=== PATIENT | male | born 1935 | race Caucasian/White ===

== ENCOUNTER → 2016-09-05 | Day surgery (SDC) | payer MEDICARE, OTHER ==
[~2016-09-05] VITALS: Ht 185.4 cm; Wt 88.5 kg
[~2016-09-05] MED LIST: ACETAMINOPHEN/HYDROcodone 325 MG/5 MG TAB ONE; ALLO300T2 PO; AMIO200T PO; ASPI-110 PO; BUPIVACAINE LIPOSOME PF 1.3% 20 ML VIAL ONE; BUPIVACAINE/EPINEPHRINE 0.25% PF 30 ML VIAL ONE; INSULIN HUMAN REGULAR 1,000 UNITS/10 ML VIAL SQ PRN; LACTATED RINGER'S 1000 ML INJ 1,000 ML IV ONE; LACTATED RINGER'S 1000 ML IV SCH; METOPROLOL TARTRATE 25 MG TAB PO PRN; MIDAZOLAM HCL 2 MG/2 ML VIAL ONE; NEOSTIGMINE 3 MG/3 ML SYR IV ONE; ONDANSETRON HCL 4 MG/2 ML VIAL IV PUSH ONE; PROPOFOL 200 MG/20 ML AMP IV ONE; ROSU20 PO; SODIUM CHLORID 0.9% 500 ML IV SCH; WARF4TAB52 PO; ceFAZolin 2 GM PREMIX 50 ML IV SCH; fentaNYL CITRATE 250 MCG/5 ML AMP ONE
[2016-09-05 12:14] VITALS: BP 177/72; PULSE 50; RESP 16; TEMP 98.1; O2SAT 97
[2016-09-05 12:36] LABS: AUTOMATED NEUTROPHIL # 3.6 TH/MM3 (1.8-7.7); BASOPHIL % 0.6 % (0.0-2.0); EOSINOPHIL # 0.1 TH/MM3 (0-0.4); EOSINOPHIL % 2.3 % (0.0-4.0); HEMATOCRIT 42.5 % (39.0-51.0); HEMO FLAGS DIFF FINAL; LYMPH % 24.5 % (9.0-44.0); LYMPHOCYTE # 1.4 TH/MM3 (1.0-4.8); MEAN CELL VOLUME 100.3 FL (80.0-100.0); MEAN CORPUSCULAR HEMOGLOBIN 34.1 PG (27.0-34.0); MONO % 9.8 % (0.0-8.0); NEUT % 62.8 % (16.0-70.0); PLATELET COUNT 110 TH/MM3 (150-450); RED BLOOD COUNT 4.24 MIL/MM3 (4.50-5.90); RED CELL DISTRIBUTION WIDTH 15.7 % (11.6-17.2); WHITE BLOOD COUNT 5.7 TH/MM3 (4.0-11.0)
[2016-09-05 12:41] LABS: INTERNATIONAL NORMALIZED RATIO 1.3 RATIO
--- NOTE | 2016-09-05 13:08 | EKG ---
Date Performed: 09/05/2016 Time Performed: 12:22:47 PTAGE: 81 years EKG: BASELINE ARTIFACT PRESENT. SINUS BRADYCARDIA WITH FIRST DEGREE AV BLOCK ABNORMAL ECG COMPAR ED TO PRIOR ELECTROCARDIOGRAM, Rate has slowed. PREVIOUS TRACING : 08/15/2012 11.24 DOCTOR: Samson Davidson Interpretating Date/Time 09/05/2016 13:07:35
--- NOTE | 2016-09-05 15:38 | PD.OP ---
Operative Report Date of Surgery: Sep 05, 2016 Preoperative Diagnosis: Ventral incisional hernias Postoperative Diagnosis: same Procedure: Lap repair ventral incisional hernias with Goretex dual mesh 16 x 22 x 1 Anesthesia: general Surgeon: Fab Thompson [employer](s): Kezia from [facility] Operation and Findings: multiple VIHs in midline. Covered by 16 x 22 x1 dual mesh. EBL less than 10 ml. Fab Thompson MD Sep 05, 2016 15:38
[2016-09-05 17:15] VITALS: BP 154/77; PULSE 55; RESP 16; TEMP 96.6; O2SAT 97
--- NOTE | 2016-09-06 11:51 | MP ---
cc: MOSES FINCH M.D. DATE OF SURGERY: 09/05/2016 PREOPERATIVE DIAGNOSIS Ventral incisional hernias. POSTOPERATIVE DIAGNOSIS Ventral incisional hernias. PROCEDURE Laparoscopic repair ventral incisional hernias with Cottondale-Rafael dual mesh, 16 x 22 x 1. ANESTHESIA General. 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 About 2 years ago he noticed a bulge in a midline scar. It has recently become larger in size and he experiences a burning sensation associated with it. He has a history of atrial fibrillation and takes Coumadin. He is interested in laparoscopy. INTRAOPERATIVE FINDINGS Adhesions of the omentum into multiple hernia defects in the midline. The defect was broadly covered with approximate 16 x 22 one piece of Cott[place]ale-Rafael dual mesh. Estimated blood loss less than 10 mL. DESCRIPTION OF PROCEDURE IN DETAIL The patient was identified as Camila Humphrey, taken to the operating room and placed in the supine position following a TAP block by anesthesia. The sequential compression devices were placed on bilateral lower extremities. Following induction of adequate general endotracheal anesthesia a Swift catheter was placed and the patient's abdomen was prepped and draped in usual sterile fashion with Chloraprep and Ioban drape. A time-out procedure was performed. Following completion of time-out procedure to everyone's satisfaction within the room 0.25% Marcaine with epinephrine was placed at each incision site. The left lateral subcostal transverse incision about 2 cm in length was carried out with scalpel and dissection continued posteriorly through the subcutaneous fatty tissue and the anterior fascia. The underlying muscle and posterior fascia and peritoneum were spread and entered using the surgeon's finger. The applied medical balloon Lico trocar was placed in the peritoneal cavity, its balloon inflated with CO2 insufflation until a level of 15 mmHg ensued. Midline adhesions to the hernia defects of omentum were immediately identified. Two left lateral 5 mm trocars and ultimately a third 5 mm trocar on the right side were placed in the peritoneal cavity under direct laparoscopic view after incision of skin with scalpel. The omental adhesions were carefully taken down from the multiple hernia defects using combination of blunt dissection scissor and scissor electrocautery. Care was taken to avoid any power source near any loops of intestine. Several loops of small bowel and colon were present inferior to the hernia defects and these were gently mobilized further inferiorly. Using a local anesthetic needle the hernia size was measured after the abdomen was desufflated and sized to about a 10 x 12 cm. With a full insufflation and slightly smaller with desufflation a 18 x 24 x 1 piece of Cottondale-Rafael dual mesh was selected, customized to approximate 16 x 22 size and made oval. CVO Cottondale sutures were placed at the 12, 3, 6 and 9 o'clock positions on the corduroy side of the mesh. The mesh was rolled and placed in the abdominal cavity, unrolled. The 6 o'clock and 9 o'clock and 12 o'clock and 3 o'clock sutures were brought out using the Novapass suture pass device making the mesh taut in a sumeet shape with an insufflation level of 10 mmHg. The sutures were then tied down and broad coverage of the hernia defect was obtained. Pro tack device was used to place tacks every 1-2 cm along the periphery of the mesh, making the mesh completely taut starting first between the 6 and 9 o'clock position and then the 12 and 3 o'clock and then the 3 and 6 o'clock and then the 9 to 12 o'clock position. Four more full thickness sutures were used for suture fixation using the Novapass suture passer and Cottondale CV0 suture evenly spaced between the 12 and 3 and 3 and 6, 6 and 9 and 9 to 12 o'clock previously placed sutures. Photographs were taken of the completed repair. There was no evidence of bleeding. Trocars were removed under direct visualization. There was no evidence of bleeding from trocar sites. The abdomen was desufflated. The subcostal port was then removed. The posterior fascia peritoneum was closed with single 0 Vicryl [id number] suture. Anterior fascia was closed with 2-0 Vicryl [id number] sutures. Skin incisions were approximated with 4-0 Monocryl subcuticular sutures. Dressings were applied, Mastisol, half-inch brown Steri-Strips, sterile towel and abdominal binder. The patient tolerated the procedures without apparent complication. Sponge, needle and instrument counts were correct at the end of the case. Moses G. Ramshaw, MD DGR/KARISSA /3:51 PM /11:24 AM
== END | disposition home or self-care (01) ==
LOC: HSDC 11:21
PROVIDERS: ATTEND Surgery Trauma Surgery
DX: K43.2 Incisional hernia without obstruction or gangrene (principal); I25.10 Atherosclerotic heart disease of native coronary artery without angina pectoris; Z95.1 Presence of aortocoronary bypass graft
CPT/HCPCS: 00832; 49560; 49568; 64486; 85025; 85610; 93005; C1781; J0690; J2250; J2405; J2710; J3010; J7120; C9290